=== PATIENT | female | born 1955 | race Caucasian/White ===

== ENCOUNTER → 2017-09-07 | Outpatient (CLI) | payer OTHER ==
[~2017-09-07] MED LIST: ALBU90OI INH; AMOCLA875 PO; ASPI325 PO; ATOR10 PO; AZIT250 PO; CALCA500CH; CHOL10002 PO; CLOP75 PO; CYCL10 PO; FERR325 PO; FLUT.05NI; GABA300; GUAI600T33 PO; HYDACE5 PO; HYDACE7.5 PO; HYDHOMSY PO; HYDR1TAB94 PO; LEVSOD50; LEVSOD50 PO; METF500; Norco 5-325 Ta1 EACH PO; ONDA4ODT MM; OXYACE5T PO; PRED20 PO; PRELIEF PO; Pulmicort Fle180 MCG INH; ROSU10TA PO; RXONDA4ODT MM; Vibramycin100 MG PO; ZOLP10 PO; ZOLP5 PO; [UNRECOGNIZED DRUG - REMARK]; [UNRECOGNIZED DRUG - REMARK]
[2017-09-07 11:34] LABS: BASOPHILS ABSOLUTE AUTO 0.03 K/mm3 (0.00-0.23); BASOPHILS PERCENT AUTO 0 % (0-2); EOSINOPHILS ABSOLUTE AUTO 0.23 K/mm3 (0.00-0.68); EOSINOPHILS PERCENT AUTO 3 % (0-6); Hematocrit 39.2 % (33.0-51.0); Hemoglobin 12.8 g/dL (11.5-16.0); IMMATURE GRAN ABSOLUTE AUTO 0.03 K/mm3 (0.00-0.10); IMMATURE GRAN PERCENT AUTO 0 % (0-1); LYMPHOCYTES ABSOLUTE AUTO 1.51 K/mm3 (0.84-5.20); LYMPHOCYTES PERCENT AUTO 20 % (21-46); MONOCYTES ABSOLUTE AUTO 0.87 K/mm3 (0.16-1.47); MONOCYTES PERCENT AUTO 12 % (4-13); Mean Corpuscular HGB Conc 32.7 g/dL (31.5-36.5); Mean Corpuscular Volume 92 fL (80-100); Mean Platelet Volume 9.7 fL (9.1-12.4); NEUTROPHILS PERCENT AUTO 65 % (41-73); Platelet Count 248 K/mm3 (150-400); RDW Coefficient Variation 13.2 % (11.7-14.2); RDW Standard Deviation 44.7 fL (35.1-46.3); Red Blood Cell Count 4.27 M/mm3 (3.80-5.20); White Blood Cell Count 7.57 K/mm3 (4.00-11.30)
[2017-09-07 11:56] LABS: Alanine Aminotransfer (ALT/SGP 28 U/L (12-78); Albumin, Blood 3.7 g/dL (3.4-5.0); Albumin/Globulin Ratio 1.1 (0.8-1.8); Alk Phos 49 U/L (40-126); Anion Gap 7 mmol/L (6-16); Aspartate Aminotrans (AST/SGOT 18 U/L (12-37); Bilirubin, Total 0.3 mg/dL (0.1-1.0); Blood Urea Nitrogen 22 mg/dL (8-24); Bun/Creatinine Ratio 34.9 (12.0-20.0); CO2, Blood 30 mmol/L (21-32); Calcium, Blood 8.9 mg/dL (8.5-10.1); Chloride, Blood 103 mmol/L (98-108); Creatinine, Blood 0.63 mg/dL (0.40-1.00); Globulin, Blood 3.4 g/dL (2.2-4.0); Glomerular Filtration Rate >60 (60-); Glucose, Blood 84 mg/dL (70-99); Potassium, Blood 4.7 mmol/L (3.5-5.5); Sodium, Blood 140 mmol/L (136-145); Total Protein, Blood 7.1 g/dL (6.4-8.2)
[2017-09-07 11:58] LABS: Troponin I <0.017 ng/mL (0.000-0.040)
== END ==
LOC: LAB SHORT 11:26 → LAB EV 11:26
PROVIDERS: Physician Assistant
DX: R53.83 Other fatigue (principal); R06.00 Dyspnea, unspecified; R35.8 Other polyuria
CPT/HCPCS: 80053; 83880; 84443; 84484; 85025; 87086

== ENCOUNTER → 2018-06-15 | Outpatient (CLI) | payer OTHER ==
[2018-06-15 16:10] LABS: Source, Urine Clean Catch
[2018-06-15 16:36] LABS: Appearance, Urine Clear (Clear); Bilirubin, Urine Neg (Neg); Blood, Urine Neg (Neg); Color, Urine Yellow (P-Yellow); Glucose Qualitative, Urine Neg (Normal); Ketones, Urine Neg (Neg); Leukocyte Esterase, Urine Neg (Neg); Nitrite, Urine Neg (Neg); Protein, Urine Neg (Neg); Specific Gravity, Urine 1.015 (1.003-1.022); Urobilinogen, Urine NORM (Normal)
== END | disposition home or self-care (01) ==
LOC: LAB EV 15:55 → LAB SHORT 15:55
PROVIDERS: Internal Medicine
DX: R30.0 Dysuria (principal)
CPT/HCPCS: 81003

== ENCOUNTER 2018-11-19 17:12 | Emergency (ER) | payer OTHER ==
[~2018-11-19] VITALS: Ht 162.6 cm; Wt 102.1 kg
[~2018-11-19 17:12] MED LIST changes: +ALBU90OI61 INH; +CETI5 PO; +CLOB.05TO; +DULO60 PO; +Flonase 0.05% N16 GM; +PANT40 PO; +PREG75 PO; +TEJOCOTE ROOT PO
== END 2018-11-19 18:54 | disposition home or self-care (01) ==
LOC: ER 17:12
DX: M79.604 Pain in right leg (principal); Z88.8 Allergy status to other drugs, medicaments and biological substances; Z88.5 Allergy status to narcotic agent; Z79.899 Other long term (current) drug therapy; E78.5 Hyperlipidemia, unspecified; E03.9 Hypothyroidism, unspecified; Z87.891 Personal history of nicotine dependence
CPT/HCPCS: 93971; 99283-25

== ENCOUNTER → 2018-12-10 | Outpatient (CLI) | payer OTHER ==
[2018-12-10 16:15] LABS: BASOPHILS ABSOLUTE AUTO 0.03 K/mm3 (0.00-0.23); BASOPHILS PERCENT AUTO 0 % (0-2); EOSINOPHILS ABSOLUTE AUTO 0.53 K/mm3 (0.00-0.68); EOSINOPHILS PERCENT AUTO 7 % (0-6); Hematocrit 38.5 % (33.0-51.0); Hemoglobin 12.5 g/dL (11.5-16.0); IMMATURE GRAN ABSOLUTE AUTO 0.02 K/mm3 (0.00-0.10); IMMATURE GRAN PERCENT AUTO 0 % (0-1); LYMPHOCYTES ABSOLUTE AUTO 1.86 K/mm3 (0.84-5.20); LYMPHOCYTES PERCENT AUTO 24 % (21-46); MONOCYTES ABSOLUTE AUTO 1.37 K/mm3 (0.16-1.47); MONOCYTES PERCENT AUTO 18 % (4-13); Mean Corpuscular HGB Conc 32.5 g/dL (31.5-36.5); Mean Corpuscular Volume 89 fL (80-100); Mean Platelet Volume 9.8 fL (9.1-12.4); NEUTROPHILS ABSOLUTE AUTO 3.95 K/mm3 (1.96-9.15); NEUTROPHILS PERCENT AUTO 51 % (41-73); Platelet Count 254 K/mm3 (150-400); RDW Coefficient Variation 13.6 % (11.7-14.2); RDW Standard Deviation 44.3 fL (35.1-46.3); Red Blood Cell Count 4.31 M/mm3 (3.80-5.20); White Blood Cell Count 7.76 K/mm3 (4.00-11.30)
[2018-12-10 17:03] LABS: Alanine Aminotransfer (ALT/SGP 27 U/L (12-78); Albumin, Blood 3.4 g/dL (3.4-5.0); Alk Phos 50 U/L (40-126); Anion Gap 10 mmol/L (6-16); Aspartate Aminotrans (AST/SGOT 23 U/L (12-37); Bilirubin, Total 0.4 mg/dL (0.1-1.0); Blood Urea Nitrogen 16 mg/dL (8-24); Bun/Creatinine Ratio 20.8 (12.0-20.0); CO2, Blood 25 mmol/L (21-32); Calcium, Blood 8.8 mg/dL (8.5-10.1); Chloride, Blood 106 mmol/L (98-108); Creatinine, Blood 0.77 mg/dL (0.40-1.00); Globulin, Blood 3.3 g/dL (2.2-4.0); Glomerular Filtration Rate >60 (60-); Glucose, Blood 100 mg/dL (70-99); Potassium, Blood 3.6 mmol/L (3.5-5.5); Sodium, Blood 141 mmol/L (136-145); Total Protein, Blood 6.7 g/dL (6.4-8.2)
[2018-12-10 17:04] LABS: Troponin I <0.017 ng/mL (0.000-0.040)
== END | disposition home or self-care (01) ==
LOC: LAB SHORT 16:06 → LAB EV 16:06
PROVIDERS: Physician Assistant
DX: R07.9 Chest pain, unspecified (principal); R53.83 Other fatigue
CPT/HCPCS: 80053; 84443; 84484; 85025

== ENCOUNTER → 2019-06-23 | Outpatient (CLI) | payer OTHER ==
[2019-06-23 16:14] LABS: BASOPHILS ABSOLUTE AUTO 0.03 K/mm3 (0.00-0.23); BASOPHILS PERCENT AUTO 0 % (0-2); EOSINOPHILS ABSOLUTE AUTO 0.01 K/mm3 (0.00-0.68); EOSINOPHILS PERCENT AUTO 0 % (0-6); Hematocrit 38.6 % (33.0-51.0); Hemoglobin 12.6 g/dL (11.5-16.0); IMMATURE GRAN ABSOLUTE AUTO 0.04 K/mm3 (0.00-0.10); IMMATURE GRAN PERCENT AUTO 0 % (0-1); LYMPHOCYTES ABSOLUTE AUTO 1.11 K/mm3 (0.84-5.20); LYMPHOCYTES PERCENT AUTO 12 % (21-46); MONOCYTES ABSOLUTE AUTO 0.95 K/mm3 (0.16-1.47); MONOCYTES PERCENT AUTO 10 % (4-13); Mean Corpuscular HGB 29.4 pg (26.0-34.0); Mean Corpuscular HGB Conc 32.6 g/dL (31.5-36.5); Mean Corpuscular Volume 90 fL (80-100); Mean Platelet Volume 9.7 fL (9.1-12.4); NEUTROPHILS ABSOLUTE AUTO 7.33 K/mm3 (1.96-9.15); NEUTROPHILS PERCENT AUTO 78 % (41-73); Platelet Count 257 K/mm3 (150-400); RDW Coefficient Variation 14.2 % (11.7-14.2); RDW Standard Deviation 46.9 fL (35.1-46.3); Red Blood Cell Count 4.28 M/mm3 (3.80-5.20); White Blood Cell Count 9.47 K/mm3 (4.00-11.30)
[2019-06-23 16:18] LABS: Anion Gap 10 mmol/L (6-16); Blood Urea Nitrogen 18 mg/dL (8-24); Bun/Creatinine Ratio 20.5 (12.0-20.0); CO2, Blood 29 mmol/L (21-32); Calcium, Blood 8.6 mg/dL (8.5-10.1); Chloride, Blood 103 mmol/L (98-108); Creatinine, Blood 0.88 mg/dL (0.40-1.00); Glomerular Filtration Rate >60 (60-); Glucose, Blood 146 mg/dL (70-99); Potassium, Blood 3.9 mmol/L (3.5-5.5); Sodium, Blood 142 mmol/L (136-145)
== END | disposition home or self-care (01) ==
LOC: LAB EV 16:08 → LAB SHORT 16:08
PROVIDERS: Physician Assistant Surgical
DX: R05 Cough (principal)
CPT/HCPCS: 80048; 83880; 85025

== ENCOUNTER → 2019-08-16 | Outpatient (CLI) | payer OTHER ==
[2019-08-16 11:56] LABS: BASOPHILS ABSOLUTE AUTO 0.04 K/mm3 (0.00-0.23); BASOPHILS PERCENT AUTO 1 % (0-2); EOSINOPHILS ABSOLUTE AUTO 0.43 K/mm3 (0.00-0.68); EOSINOPHILS PERCENT AUTO 5 % (0-6); Hematocrit 38.8 % (33.0-51.0); Hemoglobin 12.9 g/dL (11.5-16.0); IMMATURE GRAN ABSOLUTE AUTO 0.01 K/mm3 (0.00-0.10); IMMATURE GRAN PERCENT AUTO 0 % (0-1); LYMPHOCYTES ABSOLUTE AUTO 1.89 K/mm3 (0.84-5.20); LYMPHOCYTES PERCENT AUTO 23 % (21-46); MONOCYTES ABSOLUTE AUTO 1.66 K/mm3 (0.16-1.47); MONOCYTES PERCENT AUTO 20 % (4-13); Mean Corpuscular HGB 29.6 pg (26.0-34.0); Mean Corpuscular HGB Conc 33.2 g/dL (31.5-36.5); Mean Corpuscular Volume 89 fL (80-100); Mean Platelet Volume 9.6 fL (9.1-12.4); NEUTROPHILS ABSOLUTE AUTO 4.17 K/mm3 (1.96-9.15); NEUTROPHILS PERCENT AUTO 51 % (41-73); Platelet Count 250 K/mm3 (150-400); RDW Coefficient Variation 13.8 % (11.7-14.2); RDW Standard Deviation 45.1 fL (35.1-46.3); Red Blood Cell Count 4.36 M/mm3 (3.80-5.20)
[2019-08-16 12:07] LABS: Alanine Aminotransfer (ALT/SGP 25 U/L (12-78); Albumin, Blood 3.2 g/dL (3.4-5.0); Albumin/Globulin Ratio 0.8 (0.8-1.8); Alk Phos 46 U/L (40-126); Anion Gap 9 mmol/L (6-16); Aspartate Aminotrans (AST/SGOT 21 U/L (12-37); Bilirubin, Total 0.4 mg/dL (0.1-1.0); Blood Urea Nitrogen 17 mg/dL (8-24); Bun/Creatinine Ratio 22.4 (12.0-20.0); CO2, Blood 32 mmol/L (21-32); Calcium, Blood 8.6 mg/dL (8.5-10.1); Chloride, Blood 99 mmol/L (98-108); Creatinine, Blood 0.76 mg/dL (0.40-1.00); Globulin, Blood 3.9 g/dL (2.2-4.0); Glomerular Filtration Rate >60 (60-); Glucose, Blood 148 mg/dL (70-99); Potassium, Blood 3.4 mmol/L (3.5-5.5); Sodium, Blood 140 mmol/L (136-145); Total Protein, Blood 7.1 g/dL (6.4-8.2); Troponin I <0.017 ng/mL (0.000-0.040)
== END ==
LOC: LAB EV 11:51 → LAB SHORT 11:51
PROVIDERS: Emergency Medicine
DX: R07.9 Chest pain, unspecified (principal)
CPT/HCPCS: 80053; 84484; 85025

== ENCOUNTER 2019-09-13 07:52 | Day surgery (SDC) | payer OTHER ==
[~2019-09-13] VITALS: Wt 106.0 kg
[~2019-09-13 07:52] MED LIST changes: +Crestor20 MG PO; +EUTHYROX50 MC1 PO; +HYDCHL25 PO; +IBUP800 PO; +LOSA25 PO; +METO25ER PO; -ROSU10TA PO
--- NOTE | 2019-09-13 09:15 | NUR ---
PT WALKED TO THE BATHROOM AND IS NOTED TO BE DYSPNIC AND BLOOD PRESSURE AND HEART RATE ELEVATED. PT GIVEN METOPROLOL 5MG SLOW IV PUSH. PRIOR TO GOING TO CT.
--- NOTE | 2019-09-13 10:00 | NUR ---
REVIEWED DC INSTRUCTIONS. PT PROVIDED WITH ICE WATER. DC VIA WC TO WAIT IN THE LOBBY FOR HER . PT IN NO ACUTE DISTRESS.
== END 2019-09-13 10:02 | disposition home or self-care (01) ==
LOC: ORD 07:52 → CT 07:52 → ORD 08:30 → CT 09:00 → ORD 10:02
DX: I25.10 Atherosclerotic heart disease of native coronary artery without angina pectoris (principal); I10 Essential (primary) hypertension; E78.5 Hyperlipidemia, unspecified; Z87.891 Personal history of nicotine dependence; Z79.02 Long term (current) use of antithrombotics/antiplatelets; Z79.899 Other long term (current) drug therapy; Z88.5 Allergy status to narcotic agent; Z88.8 Allergy status to other drugs, medicaments and biological substances
CPT/HCPCS: 75574; Q9967

== ENCOUNTER → 2020-08-11 | Outpatient (CLI) | payer OTHER ==
[~2020-08-11] MED LIST changes: +AMLO5 PO; +TIOT18 INH; +XARELTO15 MG PO
[2020-08-12 18:02] LABS: CORONAVIRUS (COVID19) CSH-NRL Negative (Negative)
== END ==
LOC: PLD 08:05 → LAB SHORT 08:05
PROVIDERS: Physician Assistant
DX: Z20.822 Contact with and (suspected) exposure to COVID-19 (principal); Z88.5 Allergy status to narcotic agent; Z88.8 Allergy status to other drugs, medicaments and biological substances
CPT/HCPCS: U0003

== ENCOUNTER 2020-11-10 07:05 | Day surgery (SDC) | payer OTHER ==
[~2020-11-10] VITALS: Ht 162.6 cm; Wt 108.0 kg
--- NOTE | 2020-11-10 12:22 | NUR ---
TR BAND ALL AIR REMOVED FROM TR BAND CDI-NO HEMATOMA NOTED
--- NOTE | 2020-11-10 14:21 | NUR ---
DISCHARGE PT REMAINED A&OX3 AND DENIED ANY PAIN DURING RECOVERY. RIGHT RADIAL SITE REMAINS CDI-NO HEMATOMA NOTED-TR BAND REMOVED-CLOTH DOT AND WHITE BOARD REMAIN IN PLACE. IV DC'D WITH SHANI IN TACT. DISCHARGE PAPERWORK GONE OVER WITH PT. PT VERBALLY STATED THE UNDERSTANDING OF THE DISCHARGE EDUCATION AND DENIED ANY QUESTIONS AT THIS TIME. PT ABLE TO DRESS SELF. PT WHEELED OUT BY BARRERA Hart RN.
== END 2020-11-10 13:30 | disposition home or self-care (01) ==
LOC: MHTC 07:05
DX: I25.110 Atherosclerotic heart disease of native coronary artery with unstable angina pectoris (principal); I73.9 Peripheral vascular disease, unspecified; R06.00 Dyspnea, unspecified; I10 Essential (primary) hypertension; E78.5 Hyperlipidemia, unspecified; M79.7 Fibromyalgia; J45.909 Unspecified asthma, uncomplicated; Z79.01 Long term (current) use of anticoagulants
CPT/HCPCS: 76937; 93458; 99152; 99153; A9270; C1769; C1894; J1644; J2250; J3010; J7030; J7050; Q9967

== ENCOUNTER 2021-03-24 09:25 | Day surgery (SDC) | payer OTHER ==
[~2021-03-24] VITALS: Ht 162.6 cm; Wt 106.0 kg
== END 2021-03-24 14:00 | disposition home or self-care (01) ==
LOC: MHTC 09:25
DX: I73.9 Peripheral vascular disease, unspecified (principal); J45.909 Unspecified asthma, uncomplicated; I10 Essential (primary) hypertension; E78.5 Hyperlipidemia, unspecified; Z87.891 Personal history of nicotine dependence; Z88.5 Allergy status to narcotic agent; Z88.8 Allergy status to other drugs, medicaments and biological substances; Z79.01 Long term (current) use of anticoagulants
CPT/HCPCS: 37225; 75625; 75716; 75774; 76937; 99152; 99153; A9270; C1714; C1760; C1769; C1884; C1887; C1894; C2623; J1644; J2250; J3010; J7030; J7050; Q9967

== ENCOUNTER 2021-08-13 01:45 | Day surgery (SDC) | payer OTHER | END 2021-08-13 23:31 | disposition home or self-care (01) | LOC: WOUND 01:45 | DX: L97.812 Non-pressure chronic ulcer of other part of right lower leg with fat layer exposed (principal); I73.9 Peripheral vascular disease, unspecified; I70.292 Other atherosclerosis of native arteries of extremities, left leg; I10 Essential (primary) hypertension; J45.909 Unspecified asthma, uncomplicated; Z88.5 Allergy status to narcotic agent; Z88.8 Allergy status to other drugs, medicaments and biological substances; Z87.891 Personal history of nicotine dependence; Z85.72 Personal history of non-Hodgkin lymphomas; Z92.3 Personal history of irradiation | CPT/HCPCS: A9270; G0463 ==

== ENCOUNTER 2021-08-20 01:06 | Day surgery (SDC) | payer OTHER | END 2021-08-20 23:23 | disposition home or self-care (01) | LOC: WOUND 01:06 | DX: L97.812 Non-pressure chronic ulcer of other part of right lower leg with fat layer exposed (principal); I70.292 Other atherosclerosis of native arteries of extremities, left leg; I10 Essential (primary) hypertension; Z95.820 Peripheral vascular angioplasty status with implants and grafts; Z79.01 Long term (current) use of anticoagulants | CPT/HCPCS: A9270 ==

== ENCOUNTER 2021-08-27 01:17 | Day surgery (SDC) | payer OTHER | END 2021-08-27 23:39 | disposition home or self-care (01) | LOC: WOUND 01:17 | DX: L97.212 Non-pressure chronic ulcer of right calf with fat layer exposed (principal); I70.292 Other atherosclerosis of native arteries of extremities, left leg; I10 Essential (primary) hypertension | CPT/HCPCS: A9270; G0463 ==

== ENCOUNTER 2021-09-03 00:22 | Day surgery (SDC) | payer OTHER | END 2021-09-03 23:21 | disposition home or self-care (01) | LOC: WOUND 00:22 | DX: L97.812 Non-pressure chronic ulcer of other part of right lower leg with fat layer exposed (principal); I73.9 Peripheral vascular disease, unspecified; I10 Essential (primary) hypertension; I70.292 Other atherosclerosis of native arteries of extremities, left leg | CPT/HCPCS: A9270 ==

== ENCOUNTER 2021-09-10 02:30 | Day surgery (SDC) | payer OTHER | END 2021-09-10 23:24 | disposition home or self-care (01) | LOC: WOUND 02:30 | DX: L97.812 Non-pressure chronic ulcer of other part of right lower leg with fat layer exposed (principal); I73.9 Peripheral vascular disease, unspecified; I10 Essential (primary) hypertension; I70.292 Other atherosclerosis of native arteries of extremities, left leg | CPT/HCPCS: A9270 ==

== ENCOUNTER 2021-09-24 09:05 | Day surgery (SDC) | payer OTHER | END 2021-09-24 22:53 | disposition home or self-care (01) | LOC: WOUND 09:05 | DX: Z09 Encounter for follow-up examination after completed treatment for conditions other than malignant neoplasm (principal); I70.292 Other atherosclerosis of native arteries of extremities, left leg; I73.9 Peripheral vascular disease, unspecified; I10 Essential (primary) hypertension; Z87.2 Personal history of diseases of the skin and subcutaneous tissue | CPT/HCPCS: A9270; G0463 ==

== ENCOUNTER → 2021-10-09 | Outpatient (CLI) | payer OTHER | LOC: LAB SHORT 13:57 | DX: N39.0 Urinary tract infection, site not specified (principal) ==

== ENCOUNTER → 2023-04-17 | Outpatient (CLI) | payer MEDICARE | END | disposition home or self-care (01) | LOC: LAB 14:30 → LAB SHORT 14:30 | DX: N89.8 Other specified noninflammatory disorders of vagina (principal) | CPT/HCPCS: 87070; 87147; 87205 ==

== ENCOUNTER 2023-05-24 10:14 | Emergency (ER) | payer MEDICARE ==
[~2023-05-24] VITALS: Ht 162.6 cm; Wt 99.8 kg
[2023-05-24 10:37] LABS: Source, Urine Clean Catch
[2023-05-24 11:04] LABS: Appearance, Urine Clear (Clear); Bilirubin, Urine Neg (Neg); Blood, Urine Neg (Neg); Color, Urine Yellow (P-Yellow); Glucose Qualitative, Urine Neg (Neg); Ketones, Urine Neg (Neg); Leukocyte Esterase, Urine 1+ (Neg); Nitrite, Urine Neg (Neg); Protein, Urine 1+ (Neg); Specific Gravity, Urine 1.025 (1.003-1.022); Urobilinogen, Urine NORM (Normal)
[2023-05-24 11:22] LABS: Mucus Mod (0-Heavy)
[2023-05-24 11:23] LABS: Bacteria Few /hpf; Squamous Epithelial Cells Few /hpf (Few)
[2023-05-24 13:14] LABS: BASOPHILS ABSOLUTE AUTO 0.04 K/mm3 (0.00-0.23); BASOPHILS PERCENT AUTO 1 % (0-2); EOSINOPHILS ABSOLUTE AUTO 0.31 K/mm3 (0.00-0.68); EOSINOPHILS PERCENT AUTO 4 % (0-6); Hematocrit 39.1 % (33.0-51.0); Hemoglobin 12.6 g/dL (11.5-16.0); IMMATURE GRAN ABSOLUTE AUTO 0.01 K/mm3 (0.00-0.10); IMMATURE GRAN PERCENT AUTO 0 % (0-1); LYMPHOCYTES ABSOLUTE AUTO 1.84 K/mm3 (0.84-5.20); LYMPHOCYTES PERCENT AUTO 25 % (21-46); MONOCYTES ABSOLUTE AUTO 0.79 K/mm3 (0.16-1.47); MONOCYTES PERCENT AUTO 11 % (4-13); Mean Corpuscular HGB 29.9 pg (26.0-34.0); Mean Corpuscular HGB Conc 32.2 g/dL (31.5-36.5); Mean Corpuscular Volume 93 fL (80-100); Mean Platelet Volume 9.2 fL (9.1-12.4); NEUTROPHILS ABSOLUTE AUTO 4.35 K/mm3 (1.96-9.15); NEUTROPHILS PERCENT AUTO 59 % (41-73); Platelet Count 274 K/mm3 (150-400); RDW Coefficient Variation 13.7 % (11.7-14.2); Red Blood Cell Count 4.22 M/mm3 (3.80-5.20); White Blood Cell Count 7.34 K/mm3 (4.00-11.30)
[2023-05-24 14:22] LABS: Albumin, Blood 3.3 g/dL (3.4-5.0); Albumin/Globulin Ratio 0.8 (0.8-1.8); Bilirubin, Total 0.3 mg/dL (0.1-1.0); Bun/Creatinine Ratio 35.8 (12.0-20.0); Calcium, Blood 8.5 mg/dL (8.5-10.1); Creatinine, Blood 0.64 mg/dL (0.40-1.00); Globulin, Blood 4.1 g/dL (2.2-4.0); Potassium, Blood 3.9 mmol/L (3.5-5.5); Total Protein, Blood 7.4 g/dL (6.4-8.2)
[2023-05-24] MEDS ORDERED: NITR100CA PO (16:51)
[2023-05-24 17:04] VITALS: BP 145/70
== END 2023-05-24 17:07 | disposition home or self-care (01) ==
LOC: ER 10:14
PROVIDERS: Physician Assistant
DX: N30.90 Cystitis, unspecified without hematuria (principal); M54.50 Low back pain, unspecified; G89.29 Other chronic pain; Z88.5 Allergy status to narcotic agent; Z79.899 Other long term (current) drug therapy; Z88.8 Allergy status to other drugs, medicaments and biological substances; E78.5 Hyperlipidemia, unspecified; E03.9 Hypothyroidism, unspecified; Z87.891 Personal history of nicotine dependence
CPT/HCPCS: 51798; 72148; 80053; 81001; 85025; 87086; 99284-25; A9270

== ENCOUNTER 2023-06-08 21:22 | Emergency (ER) | payer MEDICARE ==
[~2023-06-08] VITALS: Ht 162.6 cm; Wt 102.1 kg
[~2023-06-08 21:22] MED LIST changes: +NITR100CA PO
[2023-06-08 21:41] LABS: BASOPHILS ABSOLUTE AUTO 0.02 K/mm3 (0.00-0.23); BASOPHILS PERCENT AUTO 0 % (0-2); EOSINOPHILS PERCENT AUTO 0 % (0-6); Hematocrit 39.6 % (33.0-51.0); Hemoglobin 12.7 g/dL (11.5-16.0); IMMATURE GRAN ABSOLUTE AUTO 0.05 K/mm3 (0.00-0.10); IMMATURE GRAN PERCENT AUTO 0 % (0-1); LYMPHOCYTES ABSOLUTE AUTO 1.36 K/mm3 (0.84-5.20); LYMPHOCYTES PERCENT AUTO 10 % (21-46); MONOCYTES ABSOLUTE AUTO 2.03 K/mm3 (0.16-1.47); MONOCYTES PERCENT AUTO 15 % (4-13); Mean Corpuscular HGB 29.5 pg (26.0-34.0); Mean Corpuscular HGB Conc 32.1 g/dL (31.5-36.5); Mean Corpuscular Volume 92 fL (80-100); Mean Platelet Volume 9.2 fL (9.1-12.4); NEUTROPHILS ABSOLUTE AUTO 10.01 K/mm3 (1.96-9.15); NEUTROPHILS PERCENT AUTO 74 % (41-73); Platelet Count 332 K/mm3 (150-400); RDW Coefficient Variation 14.3 % (11.7-14.2); RDW Standard Deviation 48.1 fL (35.1-46.3); White Blood Cell Count 13.47 K/mm3 (4.00-11.30)
[2023-06-08 21:59] LABS: Alanine Aminotransfer (ALT/SGP 28 U/L (12-78); Albumin, Blood 3.7 g/dL (3.4-5.0); Albumin/Globulin Ratio 0.9 (0.8-1.8); Alk Phos 60 U/L (50-136); Anion Gap 5 mmol/L (6-16); Aspartate Aminotrans (AST/SGOT 20 U/L (12-37); Bilirubin, Total 0.1 mg/dL (0.1-1.0); Blood Urea Nitrogen 29 mg/dL (8-24); Bun/Creatinine Ratio 35.2 (12.0-20.0); CO2, Blood 27 mmol/L (21-32); Calcium, Blood 8.9 mg/dL (8.5-10.1); Chloride, Blood 109 mmol/L (98-108); Creatinine, Blood 0.83 mg/dL (0.40-1.00); Globulin, Blood 4.3 g/dL (2.2-4.0); Glomerular Filtration Rate 78 (60-); Glucose, Blood 121 mg/dL (70-99); Potassium, Blood 3.9 mmol/L (3.5-5.5); Sodium, Blood 141 mmol/L (136-145)
[2023-06-09 01:00] VITALS: BP 125/59
== END 2023-06-09 01:29 | disposition short-term general hospital (02) ==
LOC: ER 21:22
PROVIDERS: Student in an Organized Health Care Education/Training Program
DX: S06.5X0A Traumatic subdural hemorrhage without loss of consciousness, initial encounter (principal); S01.01XA Laceration without foreign body of scalp, initial encounter; F10.929 Alcohol use, unspecified with intoxication, unspecified; I10 Essential (primary) hypertension; E78.5 Hyperlipidemia, unspecified; M79.7 Fibromyalgia; I73.9 Peripheral vascular disease, unspecified; I25.10 Atherosclerotic heart disease of native coronary artery without angina pectoris; Z87.891 Personal history of nicotine dependence; Z79.02 Long term (current) use of antithrombotics/antiplatelets; Z79.51 Long term (current) use of inhaled steroids; Z79.899 Other long term (current) drug therapy; Z88.5 Allergy status to narcotic agent; Z88.8 Allergy status to other drugs, medicaments and biological substances; W18.39XA Other fall on same level, initial encounter
CPT/HCPCS: 12002; 70450; 72125; 80053; 85025; 93005; 93010; 96365; 99285-25; J7168

== ENCOUNTER 2023-06-20 09:50 | Day surgery (SDC) | payer MEDICARE ==
[~2023-06-20] VITALS: Ht 162.6 cm; Wt 100.9 kg
[2023-06-20] VITALS (8 sets, daily range): BP systolic 94–139; BP diastolic 46–94
[~2023-06-20 09:50] MED LIST changes: +FLUTICASONE-SA1 EAC1 INH; +Lopressor 25 mg25 MG PO; +TRAZ50 PO
[2023-06-20] MEDS ORDERED: XARELTO20 MG PO (10:19)
[2023-06-20] MEDS ORDERED: Heparin Sodium 1000 Units/ML 10ML MDV ONE (10:49)
[2023-06-20] MEDS ORDERED: NS 250 ML IV ONE (10:49)
[2023-06-20] MEDS ORDERED: NS 1,000 ML IV ONE ×4 (10:50→12:52)
[2023-06-20] MEDS ORDERED: Midazolam HCl 1MG / ML 2ML Vial ONE ×2 (11:14→12:37)
[2023-06-20] MEDS ORDERED: FentaNYL Citrate 50 MCG/ML 2 ML Injection ONE ×2 (11:14→13:01)
[2023-06-20] MEDS ORDERED: HydrALAZINE HCl 20 MG / ML 1ML Vial ONE (13:21)
[2023-06-20] MEDS ORDERED: HYDROcodone 5-APAP 325 TAB ONE (13:54)
--- NOTE | 2023-06-20 14:30 | NUR ---
ASSUMED PATIENT CARE AT THIS TIME. R GROIN SITE C/D/I SOFT/NONTENDER. NO EVIDENCE OF BLEEDING. VSS ON RA. PATIENT TOLERATING PO INTAKE WELL. HOB SLIGHTLY ELEVATED.
[2023-06-20] MEDS ORDERED: Clopidogrel Bisulfate 75 MG Tab ONE (14:40)
--- NOTE | 2023-06-20 15:18 | NUR ---
PATIENT MOVING FREELY IN BED WITHOUT DIFFICULTY. PATIENT DENYING ANY PAIN. R GROIN SITE C/D/I SOFT/NONTENDER, NO EVIDENCE OF BLEEDING. VSS ON RA.
--- NOTE | 2023-06-20 15:55 | NUR ---
PATIENT DISCHARGE INSTRUCTIONS REVIEWED WITH PATIENT AND SPOUSE AT BEDSIDE. ALL QUESTIONS WERE ANSWERED. PATIENT STANDING AT BEDSIDE WITHOUT DIFFICULTY. L GROIN SITE C/D/I SOFT/NONTENDER, NO EVIDENCE OF BLEEDING. VSS ON RA
--- NOTE | 2023-06-20 16:08 | NUR ---
PATIENT DISCHARGED HOME AT THIS TIME. ALL PATIENT BELONGINGS AND PAPERWORK LEFT WITH PATIENT. PIV REMOVED WITHOUT DIFFICULTY, CATHETER INTACT. L GROIN SITE C/D/I SOFT/NONTENDER, NO EVIDENCE OF BLEEDING. PATIENT WHEELED TO HOSPITAL ENTRANCE AND SPOUSE ABLE TO PROVIDE TRANSPORTATION HOME.
[2023-06-28] MEDS ORDERED: ALBU90OI6 INH (11:42)
[2023-06-28] MEDS ORDERED: Crestor20 MG PO (11:42)
== END 2023-06-20 22:39 | disposition home or self-care (01) ==
LOC: MHTC 09:50
DX: I70.202 Unspecified atherosclerosis of native arteries of extremities, left leg (principal); I10 Essential (primary) hypertension; E03.9 Hypothyroidism, unspecified; E78.5 Hyperlipidemia, unspecified; J45.909 Unspecified asthma, uncomplicated; I48.91 Unspecified atrial fibrillation; Z87.891 Personal history of nicotine dependence; Z88.5 Allergy status to narcotic agent; Z88.8 Allergy status to other drugs, medicaments and biological substances; Z79.890 Hormone replacement therapy; Z79.899 Other long term (current) drug therapy
CPT/HCPCS: 37186; 37226; 75625; 75716; 75774; 76937; 99152; 99153; A9270; C1725; C1760; C1769; C1874; C1887; C1894; C2623; J0360; J1644; J2250; J3010; J7030; J7050; Q9967

== ENCOUNTER 2023-06-29 10:36 | Day surgery (SDC) | payer MEDICARE ==
[2023-06-29] VITALS (10 sets, daily range): BP systolic 101–153; BP diastolic 65–103
[~2023-06-29] VITALS: Ht 162.6 cm; Wt 103.2 kg
[~2023-06-29 10:36] MED LIST changes: +ALBU90OI6 INH; +XARELTO20 MG PO
[2023-06-29] MEDS ORDERED: NS 1,000 ML IV ONE ×4 (12:25→13:28)
[2023-06-29] MEDS ORDERED: NS 100 ML IV ONE (12:25)
[2023-06-29] MEDS ORDERED: Heparin Sodium 1000 Units/ML 10ML MDV ONE ×2 (12:25→12:53)
[2023-06-29] MEDS ORDERED: NS 250 ML IV ONE (12:25)
[2023-06-29] MEDS ORDERED: Nitroglycerin 2 MG/20 ML BTL ONE (12:26)
[2023-06-29] MEDS ORDERED: Midazolam HCl 1MG / ML 2ML Vial ONE ×3 (12:53→13:50)
[2023-06-29] MEDS ORDERED: FentaNYL Citrate 50 MCG/ML 2 ML Injection ONE ×3 (12:53→13:49)
[2023-06-29] MEDS ORDERED: Alteplase Recombinant 2 MG / Vial ONE (13:19)
[2023-06-29] MEDS ORDERED: XARELTO2.5 MG PO (13:30)
--- NOTE | 2023-06-29 14:25 | NUR ---
PT BACK TO RECOVERY ROOM. PT ALERT AND ORIENTED. YARELIS CALLED AND NOTIFIED THAT PT IS BACK IN RECOVERY. R GROIN SITE IS SOFT, NON TENDER. NO BLEEDING. PT GIVEN SMALL SIPS OF WATER WHILE LAYING FLAT. PT FOLLOWS INSTRUCTIONS TO KEEP HEAD DOWN.
[2023-06-29] MEDS ORDERED: Acetaminophen 325 MG TABLET ONE (15:23)
[2023-06-29] MEDS ORDERED: Acetaminophen 325 MG TABLET PO ONE (15:25)
--- NOTE | 2023-06-29 16:59 | NUR ---
DR ALCANTAR CAME TO UPDATE PT AND FAMILY. PT VERBALIZE D/C INSTRUCTIONS. UP TO BR AND GOT DRESSED WITHOUT DIFFICULTY. R GROIN SITE SOFT, NON TENDER, NO BLEEDING. IV D/C CATHETER INTACT. PT WHEELED OUT TO SPOUSE TRUCK.
== END 2023-06-29 16:45 | disposition home or self-care (01) ==
LOC: MHTC 10:36
DX: I70.222 Atherosclerosis of native arteries of extremities with rest pain, left leg (principal); S06.5XAA Traumatic subdural hemorrhage with loss of consciousness status unknown, initial encounter; W18.30XA Fall on same level, unspecified, initial encounter; I10 Essential (primary) hypertension; E78.5 Hyperlipidemia, unspecified; I25.10 Atherosclerotic heart disease of native coronary artery without angina pectoris; E03.9 Hypothyroidism, unspecified; J45.909 Unspecified asthma, uncomplicated; Z87.891 Personal history of nicotine dependence; Z88.5 Allergy status to narcotic agent; Z79.890 Hormone replacement therapy; Z79.899 Other long term (current) drug therapy
CPT/HCPCS: 37213; 37224; 37227; 75625; 75716; 75774; 76937; 85347; 99152; 99153; A9270; C1725; C1760; C1769; C1874; C1887; C1894; C2623; J1644; J2250; J2997; J3010; J7030; J7050; Q9967

== ENCOUNTER 2023-09-19 18:30 | Emergency (ER) | payer MEDICARE ==
[~2023-09-19] VITALS: Ht 162.6 cm; Wt 108.0 kg
[~2023-09-19 18:30] MED LIST changes: +XARELTO2.5 MG PO
[2023-09-19 21:15] VITALS: BP 116/60
== END 2023-09-19 21:27 | disposition home or self-care (01) ==
LOC: ER 18:30
DX: R06.00 Dyspnea, unspecified (principal); R60.0 Localized edema; Z88.8 Allergy status to other drugs, medicaments and biological substances; Z88.5 Allergy status to narcotic agent; Z79.899 Other long term (current) drug therapy; E78.5 Hyperlipidemia, unspecified; E03.9 Hypothyroidism, unspecified; Z87.891 Personal history of nicotine dependence
CPT/HCPCS: 71260; 93971; 99285-25; Q9967

== ENCOUNTER → 2024-02-28 | Outpatient (CLI) | payer MEDICARE ==
[2024-02-28 18:32] LABS: BASOPHILS ABSOLUTE AUTO 0.03 K/mm3 (0.00-0.23); BASOPHILS PERCENT AUTO 0 % (0-2); EOSINOPHILS ABSOLUTE AUTO 0.27 K/mm3 (0.00-0.68); EOSINOPHILS PERCENT AUTO 3 % (0-6); Hematocrit 37.7 % (33.0-51.0); Hemoglobin 11.1 g/dL (11.5-16.0); IMMATURE GRAN ABSOLUTE AUTO 0.03 K/mm3 (0.00-0.10); IMMATURE GRAN PERCENT AUTO 0 % (0-1); LYMPHOCYTES ABSOLUTE AUTO 1.75 K/mm3 (0.84-5.20); LYMPHOCYTES PERCENT AUTO 20 % (21-46); MONOCYTES ABSOLUTE AUTO 1.11 K/mm3 (0.16-1.47); MONOCYTES PERCENT AUTO 13 % (4-13); Mean Corpuscular HGB Conc 29.4 g/dL (31.5-36.5); Mean Corpuscular Volume 82 fL (80-100); Mean Platelet Volume 9.9 fL (9.1-12.4); NEUTROPHILS ABSOLUTE AUTO 5.68 K/mm3 (1.96-9.15); NEUTROPHILS PERCENT AUTO 64 % (41-73); Platelet Count 376 K/mm3 (150-400); RDW Coefficient Variation 17.9 % (11.7-14.2); RDW Standard Deviation 52.5 fL (35.1-46.3); Red Blood Cell Count 4.62 M/mm3 (3.80-5.20); White Blood Cell Count 8.87 K/mm3 (4.00-11.30)
[2024-02-28 21:35] LABS: Bun/Creatinine Ratio 25.7 (12.0-20.0); Calcium, Blood 9.4 mg/dL (8.5-10.1); Creatinine, Blood 0.82 mg/dL (0.40-1.00); Percent Saturation 4.8 % (15.0-50.0); Potassium, Blood 3.9 mmol/L (3.5-5.5)
== END | disposition home or self-care (01) ==
LOC: LAB 17:20 → LAB SHORT 17:20
PROVIDERS: Family Medicine
DX: D64.9 Anemia, unspecified (principal); R60.9 Edema, unspecified
CPT/HCPCS: 80048; 82728; 83540; 83550; 85025

== ENCOUNTER 2024-05-01 03:58 | Day surgery (SDC) | payer MEDICARE ==
[~2024-05-01 03:58] MED LIST changes: +Sod Ferric Gluc Complx/Sucrose 125 MG in NS 100 ML IV SCH
[2024-05-01 10:20] VITALS: BP 137/37
[2024-05-01] MEDS ORDERED: PREG150 PO (10:42)
== END 2024-05-01 11:38 | disposition home or self-care (01) ==
LOC: ATC 03:58
DX: E61.1 Iron deficiency (principal); E03.9 Hypothyroidism, unspecified; E78.5 Hyperlipidemia, unspecified; I10 Essential (primary) hypertension; E11.9 Type 2 diabetes mellitus without complications; J45.909 Unspecified asthma, uncomplicated; K21.9 Gastro-esophageal reflux disease without esophagitis; Z88.5 Allergy status to narcotic agent; Z88.8 Allergy status to other drugs, medicaments and biological substances; Z79.890 Hormone replacement therapy; Z79.01 Long term (current) use of anticoagulants; Z79.899 Other long term (current) drug therapy
CPT/HCPCS: 96365; J2916

== ENCOUNTER 2024-05-08 03:28 | Day surgery (SDC) | payer MEDICARE ==
[~2024-05-08 03:28] MED LIST changes: +PREG150 PO
[2024-05-08 15:00] VITALS: BP 167/76
== END 2024-05-08 16:10 | disposition home or self-care (01) ==
LOC: ATC 03:28
DX: E61.1 Iron deficiency (principal); E03.9 Hypothyroidism, unspecified; E78.5 Hyperlipidemia, unspecified; I10 Essential (primary) hypertension; E11.9 Type 2 diabetes mellitus without complications; K21.9 Gastro-esophageal reflux disease without esophagitis; J45.909 Unspecified asthma, uncomplicated; Z88.5 Allergy status to narcotic agent; Z88.1 Allergy status to other antibiotic agents; Z79.01 Long term (current) use of anticoagulants; Z79.899 Other long term (current) drug therapy
CPT/HCPCS: 96365; J2916

== ENCOUNTER 2024-05-15 04:53 | Day surgery (SDC) | payer MEDICARE ==
[~2024-05-15 04:53] MED LIST changes: -Sod Ferric Gluc Complx/Sucrose 125 MG in NS 100 ML IV SCH
[2024-05-15] MEDS ORDERED: Sod Ferric Gluc Complx/Sucrose 125 MG in NS 100 ML IV SCH (06:00)
[2024-05-15 14:48] VITALS: BP 126/51
== END 2024-05-15 15:18 | disposition home or self-care (01) ==
LOC: ATC 04:53
DX: E61.1 Iron deficiency (principal); I10 Essential (primary) hypertension; E11.9 Type 2 diabetes mellitus without complications; E03.9 Hypothyroidism, unspecified; E78.5 Hyperlipidemia, unspecified; J45.909 Unspecified asthma, uncomplicated; K21.9 Gastro-esophageal reflux disease without esophagitis; Z88.5 Allergy status to narcotic agent; Z88.8 Allergy status to other drugs, medicaments and biological substances; Z79.890 Hormone replacement therapy; Z79.01 Long term (current) use of anticoagulants; Z79.899 Other long term (current) drug therapy
CPT/HCPCS: 96365; J2916

== ENCOUNTER 2024-05-21 03:42 | Day surgery (SDC) | payer MEDICARE ==
[~2024-05-21 03:42] MED LIST changes: +Sod Ferric Gluc Complx/Sucrose 125 MG in NS 100 ML IV SCH
[2024-05-21 15:10] VITALS: BP 127/61
== END 2024-05-21 16:17 | disposition home or self-care (01) ==
LOC: ATC 03:42
DX: E61.1 Iron deficiency (principal); E03.9 Hypothyroidism, unspecified; E78.5 Hyperlipidemia, unspecified; I10 Essential (primary) hypertension; E11.9 Type 2 diabetes mellitus without complications; K21.9 Gastro-esophageal reflux disease without esophagitis; J45.909 Unspecified asthma, uncomplicated; Z88.5 Allergy status to narcotic agent; Z88.8 Allergy status to other drugs, medicaments and biological substances; Z79.01 Long term (current) use of anticoagulants; Z79.890 Hormone replacement therapy; Z79.899 Other long term (current) drug therapy
CPT/HCPCS: 96365; J2916

== ENCOUNTER 2024-06-17 03:41 | Day surgery (SDC) | payer MEDICARE ==
[~2024-06-17 03:41] MED LIST changes: -CODACE30 PO
[2024-06-17] MEDS ORDERED: Sod Ferric Gluc Complx/Sucrose 125 MG in NS 100 ML IV SCH (06:00)
[2024-06-17 08:37] VITALS: BP 127/66
[2024-06-17] MEDS ORDERED: CODACE30 PO (08:59)
--- NOTE | 2024-06-17 10:01 | NUR ---
pt arried early, we worked her into the schedule
== END 2024-06-17 09:59 | disposition home or self-care (01) ==
LOC: ATC 03:41
DX: E61.1 Iron deficiency (principal); M54.12 Radiculopathy, cervical region; M85.88 Other specified disorders of bone density and structure, other site; M79.7 Fibromyalgia; G47.00 Insomnia, unspecified; I10 Essential (primary) hypertension; E78.5 Hyperlipidemia, unspecified; E11.9 Type 2 diabetes mellitus without complications; E03.9 Hypothyroidism, unspecified; J45.909 Unspecified asthma, uncomplicated; K21.9 Gastro-esophageal reflux disease without esophagitis; Z88.5 Allergy status to narcotic agent; Z88.8 Allergy status to other drugs, medicaments and biological substances; Z79.890 Hormone replacement therapy; Z79.01 Long term (current) use of anticoagulants; Z79.899 Other long term (current) drug therapy
CPT/HCPCS: 96365; J2916

== ENCOUNTER → 2024-06-17 | Outpatient (CLI) | payer MEDICARE ==
[~2024-06-17] MED LIST changes: +CODACE30 PO; -Sod Ferric Gluc Complx/Sucrose 125 MG in NS 100 ML IV SCH
== END | disposition home or self-care (01) ==
LOC: LAB 11:59 → LAB SHORT 11:59
DX: S40.812D Abrasion of left upper arm, subsequent encounter (principal)
CPT/HCPCS: 87070; 87205

== ENCOUNTER 2024-06-26 03:25 | Day surgery (SDC) | payer MEDICARE ==
[~2024-06-26 03:25] MED LIST changes: +CODACE30 PO
== END 2024-06-26 23:00 | disposition home or self-care (01) ==
LOC: WOUND 03:25
DX: S51.802A Unspecified open wound of left forearm, initial encounter (principal); W18.49XA Other slipping, tripping and stumbling without falling, initial encounter; J45.909 Unspecified asthma, uncomplicated; I10 Essential (primary) hypertension; Z87.891 Personal history of nicotine dependence; Z88.8 Allergy status to other drugs, medicaments and biological substances
CPT/HCPCS: G0463

== ENCOUNTER 2024-07-03 05:59 | Day surgery (SDC) | payer MEDICARE | END 2024-07-03 23:00 | disposition home or self-care (01) | LOC: WOUND 05:59 | DX: S41.102A Unspecified open wound of left upper arm, initial encounter (principal); S40.812A Abrasion of left upper arm, initial encounter; W18.40XA Slipping, tripping and stumbling without falling, unspecified, initial encounter | CPT/HCPCS: G0463 ==

== ENCOUNTER 2024-09-09 01:44 | Day surgery (SDC) | payer MEDICARE ==
[2024-09-09] MEDS ORDERED: Sod Ferric Gluc Complx/Sucrose 125 MG in NS 100 ML IV SCH (06:00)
[2024-09-09 14:18] VITALS: BP 127/61
== END 2024-09-09 15:19 | disposition home or self-care (01) ==
LOC: ATC 01:44
DX: D50.8 Other iron deficiency anemias (principal); E03.9 Hypothyroidism, unspecified; R32 Unspecified urinary incontinence; G47.30 Sleep apnea, unspecified; I10 Essential (primary) hypertension; I27.20 Pulmonary hypertension, unspecified; I73.9 Peripheral vascular disease, unspecified; J45.909 Unspecified asthma, uncomplicated; K21.9 Gastro-esophageal reflux disease without esophagitis; M79.7 Fibromyalgia; Q21.12 Patent foramen ovale; E78.00 Pure hypercholesterolemia, unspecified; G89.29 Other chronic pain; M54.50 Low back pain, unspecified; E66.09 Other obesity due to excess calories; Z68.37 Body mass index [BMI] 37.0-37.9, adult; Z85.72 Personal history of non-Hodgkin lymphomas; Z86.718 Personal history of other venous thrombosis and embolism; Z87.891 Personal history of nicotine dependence; Z79.02 Long term (current) use of antithrombotics/antiplatelets; Z79.890 Hormone replacement therapy; Z79.899 Other long term (current) drug therapy; Z88.5 Allergy status to narcotic agent; Z88.8 Allergy status to other drugs, medicaments and biological substances
CPT/HCPCS: 96365; J2916

== ENCOUNTER 2024-09-18 02:04 | Day surgery (SDC) | payer MEDICARE ==
[~2024-09-18 02:04] MED LIST changes: +Sod Ferric Gluc Complx/Sucrose 125 MG in NS 100 ML IV SCH
[2024-09-18 07:59] VITALS: BP 127/62
== END 2024-09-18 09:15 | disposition home or self-care (01) ==
LOC: ATC 02:04
DX: D50.8 Other iron deficiency anemias (principal); I10 Essential (primary) hypertension; E03.9 Hypothyroidism, unspecified; E78.5 Hyperlipidemia, unspecified; J45.909 Unspecified asthma, uncomplicated; K21.9 Gastro-esophageal reflux disease without esophagitis; Z85.028 Personal history of other malignant neoplasm of stomach; Z88.5 Allergy status to narcotic agent; Z88.8 Allergy status to other drugs, medicaments and biological substances; Z79.02 Long term (current) use of antithrombotics/antiplatelets; Z79.890 Hormone replacement therapy; Z79.899 Other long term (current) drug therapy
CPT/HCPCS: 96365; J2916

== ENCOUNTER 2024-09-26 01:20 | Day surgery (SDC) | payer MEDICARE ==
[2024-09-26 16:10] VITALS: BP 115/74
== END 2024-09-26 17:24 | disposition home or self-care (01) ==
LOC: ATC 01:20
DX: D50.0 Iron deficiency anemia secondary to blood loss (chronic) (principal); Z85.028 Personal history of other malignant neoplasm of stomach; E03.9 Hypothyroidism, unspecified; E78.5 Hyperlipidemia, unspecified; I10 Essential (primary) hypertension; J45.909 Unspecified asthma, uncomplicated; K21.9 Gastro-esophageal reflux disease without esophagitis; Z88.5 Allergy status to narcotic agent; Z88.8 Allergy status to other drugs, medicaments and biological substances; Z79.02 Long term (current) use of antithrombotics/antiplatelets; Z79.01 Long term (current) use of anticoagulants; Z79.899 Other long term (current) drug therapy
CPT/HCPCS: 96365; J2916

== ENCOUNTER 2024-10-02 01:54 | Day surgery (SDC) | payer MEDICARE ==
[2024-10-02 14:07] VITALS: BP 122/61
== END 2024-10-02 15:10 | disposition home or self-care (01) ==
LOC: ATC 01:54
DX: D50.8 Other iron deficiency anemias (principal); G47.30 Sleep apnea, unspecified; R32 Unspecified urinary incontinence; E03.9 Hypothyroidism, unspecified; E78.5 Hyperlipidemia, unspecified; I10 Essential (primary) hypertension; I27.20 Pulmonary hypertension, unspecified; J45.909 Unspecified asthma, uncomplicated; K21.9 Gastro-esophageal reflux disease without esophagitis; M79.7 Fibromyalgia; E66.01 Morbid (severe) obesity due to excess calories; Z68.37 Body mass index [BMI] 37.0-37.9, adult; Z85.028 Personal history of other malignant neoplasm of stomach; Z87.891 Personal history of nicotine dependence; Z79.01 Long term (current) use of anticoagulants; Z79.02 Long term (current) use of antithrombotics/antiplatelets; Z79.890 Hormone replacement therapy; Z79.899 Other long term (current) drug therapy; Z88.5 Allergy status to narcotic agent; Z88.8 Allergy status to other drugs, medicaments and biological substances
CPT/HCPCS: 96365; J2916

== ENCOUNTER 2024-10-09 03:00 | Day surgery (SDC) | payer MEDICARE ==
[2024-10-09 08:10] VITALS: BP 130/73
== END 2024-10-09 09:20 | disposition home or self-care (01) ==
LOC: ATC 03:00
DX: D50.8 Other iron deficiency anemias (principal); E03.9 Hypothyroidism, unspecified; R32 Unspecified urinary incontinence; E78.5 Hyperlipidemia, unspecified; I10 Essential (primary) hypertension; I27.20 Pulmonary hypertension, unspecified; I73.9 Peripheral vascular disease, unspecified; K21.9 Gastro-esophageal reflux disease without esophagitis; M79.7 Fibromyalgia; G47.30 Sleep apnea, unspecified; E66.09 Other obesity due to excess calories; Z68.37 Body mass index [BMI] 37.0-37.9, adult; Z87.891 Personal history of nicotine dependence; Z79.01 Long term (current) use of anticoagulants; Z79.02 Long term (current) use of antithrombotics/antiplatelets; Z79.890 Hormone replacement therapy; Z79.899 Other long term (current) drug therapy; Z88.5 Allergy status to narcotic agent; Z88.8 Allergy status to other drugs, medicaments and biological substances
CPT/HCPCS: 96365; J2916

== ENCOUNTER 2024-10-14 00:54 | Day surgery (SDC) | payer MEDICARE ==
[~2024-10-14 00:54] MED LIST changes: -Sod Ferric Gluc Complx/Sucrose 125 MG in NS 100 ML IV SCH
[2024-10-14] MEDS ORDERED: Sod Ferric Gluc Complx/Sucrose 125 MG in NS 100 ML IV SCH (01:00)
[2024-10-14 08:00] VITALS: BP 166/83
[2024-10-14 09:45] LABS: BASOPHILS ABSOLUTE AUTO 0.03 K/mm3 (0.00-0.23); BASOPHILS PERCENT AUTO 1 % (0-2); EOSINOPHILS ABSOLUTE AUTO 0.35 K/mm3 (0.00-0.68); EOSINOPHILS PERCENT AUTO 6 % (0-6); Hemoglobin 12.8 g/dL (11.5-16.0); IMMATURE GRAN ABSOLUTE AUTO 0.03 K/mm3 (0.00-0.10); IMMATURE GRAN PERCENT AUTO 1 % (0-1); LYMPHOCYTES ABSOLUTE AUTO 1.14 K/mm3 (0.84-5.20); LYMPHOCYTES PERCENT AUTO 19 % (21-46); MONOCYTES ABSOLUTE AUTO 0.92 K/mm3 (0.16-1.47); MONOCYTES PERCENT AUTO 15 % (4-13); Mean Corpuscular HGB 27.9 pg (26.0-34.0); Mean Corpuscular HGB Conc 31.2 g/dL (31.5-36.5); Mean Corpuscular Volume 90 fL (80-100); Mean Platelet Volume 10.1 fL (9.1-12.4); NEUTROPHILS ABSOLUTE AUTO 3.59 K/mm3 (1.96-9.15); NEUTROPHILS PERCENT AUTO 59 % (41-73); Platelet Count 243 K/mm3 (150-400); RDW Coefficient Variation 17.7 % (11.7-14.2); RDW Standard Deviation 57.5 fL (35.1-46.3); Red Blood Cell Count 4.58 M/mm3 (3.80-5.20); White Blood Cell Count 6.06 K/mm3 (4.00-11.30)
[2024-10-14 10:24] LABS: Bun/Creatinine Ratio 18.6 (12.0-20.0); Creatinine, Blood 0.64 mg/dL (0.40-1.00); Potassium, Blood 4.2 mmol/L (3.5-5.5)
== END 2024-10-14 09:30 | disposition home or self-care (01) ==
LOC: ATC 00:54
PROVIDERS: Anesthesiology
DX: D50.8 Other iron deficiency anemias (principal); E03.9 Hypothyroidism, unspecified; R32 Unspecified urinary incontinence; G47.30 Sleep apnea, unspecified; E78.5 Hyperlipidemia, unspecified; I10 Essential (primary) hypertension; I27.20 Pulmonary hypertension, unspecified; I73.9 Peripheral vascular disease, unspecified; K21.9 Gastro-esophageal reflux disease without esophagitis; M79.7 Fibromyalgia; I25.10 Atherosclerotic heart disease of native coronary artery without angina pectoris; E66.01 Morbid (severe) obesity due to excess calories; Z68.37 Body mass index [BMI] 37.0-37.9, adult; Z85.028 Personal history of other malignant neoplasm of stomach; Z86.718 Personal history of other venous thrombosis and embolism; Z87.891 Personal history of nicotine dependence; Z79.01 Long term (current) use of anticoagulants; Z79.02 Long term (current) use of antithrombotics/antiplatelets; Z79.890 Hormone replacement therapy; Z79.899 Other long term (current) drug therapy; Z88.5 Allergy status to narcotic agent; Z88.8 Allergy status to other drugs, medicaments and biological substances; Z95.820 Peripheral vascular angioplasty status with implants and grafts
CPT/HCPCS: 80048; 83036; 85025; 87081; 87086; 96365; J2916

== ENCOUNTER 2024-10-28 11:54 | Emergency (ER) | payer OTHER, MEDICARE ==
[~2024-10-28] VITALS: Ht 162.6 cm; Wt 104.3 kg
[2024-10-28 12:45] VITALS: BP 148/100
== END 2024-10-28 14:15 | disposition home or self-care (01) ==
LOC: ER 11:54
DX: S93.402A Sprain of unspecified ligament of left ankle, initial encounter (principal); Z87.891 Personal history of nicotine dependence; Z88.8 Allergy status to other drugs, medicaments and biological substances; Z88.5 Allergy status to narcotic agent; Z79.890 Hormone replacement therapy; Z79.01 Long term (current) use of anticoagulants; Z79.899 Other long term (current) drug therapy; Z59.89 Other problems related to housing and economic circumstances; W01.0XXA Fall on same level from slipping, tripping and stumbling without subsequent striking against object, initial encounter
CPT/HCPCS: 73610; 99283-25